=== PATIENT | male | born 1960 | race Caucasian/White ===

== ENCOUNTER → 2022-07-02 08:38 | Outpatient (BNVA) | payer MEDICARE, SELFPAY | PROVIDERS: Visit Provider Orthopaedic Surgery | DX: M48.062 Spinal stenosis, lumbar region with neurogenic claudication (principal); M51.36 Other intervertebral disc degeneration, lumbar region | CPT/HCPCS: 72110; 99204 ==

== ENCOUNTER 2024-03-02 18:33 | Emergency (ER) | payer MEDICARE, SELFPAY ==
[2024-03-02 18:38] VITALS: BP 129/83; PULSE 80; RESP 16; TEMP 36.6; O2SAT 97
--- NOTE | 2024-03-02 18:55 | CTR_ITS ---
PROCEDURE INFORMATION: Exam: CT Abdomen And Pelvis Without Contrast Exam date and time: 03/02/2024 7:04 PM Age: 63 years old Clinical indication: Abdominal pain; Flank; Patient HX: Pain under left rib cage; Additional info: Left lank pain radiating into abd, HX stones TECHNIQUE: Imaging protocol: Computed tomography of the abdomen and pelvis without contrast. Radiation optimization: All CT scans at this facility use at least one of these dose optimization techniques: automated exposure control; mA and/or kV adjustment per patient size (includes targeted exams where dose is matched to clinical indication); or iterative reconstruction. COMPARISON: CR XR lumbar spine min 4V 11207 07/02/2022 8:38 AM RADIATION DOSE METRICS: Total DLP (mGy-cm): 447 FINDINGS: Liver: Normal. No mass. Gallbladder and bile ducts: Normal. No calcified stones. No ductal dilation. Pancreas: Normal. No ductal dilation. Spleen: Normal. No splenomegaly. Adrenal glands: Normal. No mass. Kidneys and ureters: Bilateral simple appearing renal cysts are present which do not need further follow-up, as well as other subcentimeter hypodensities which are too small to adequately characterize. There is an obstructing 6 mm stone in the proximal left ureter with upstream hydroureter and mild hydronephrosis. Stomach and bowel: Unremarkable. No obstruction. No mucosal thickening. Appendix: No evidence of appendicitis. Intraperitoneal space: Unremarkable. No free air. No significant fluid collection. Vasculature: Unremarkable. No abdominal aortic aneurysm. Lymph nodes: Unremarkable. No enlarged lymph nodes. Urinary bladder: Unremarkable as visualized. Reproductive: Unremarkable as visualized. Bones/joints: Unremarkable. No acute fracture. Soft tissues: Unremarkable. CT/CT kidney stone [id number] IMPRESSION: There is an obstructing 6 mm stone in the proximal left ureter with upstream hydroureter and mild hydronephrosis. COMMENTS: Consistent with the [employer]'s Incidental Findings Committee white paper (J Am Diego Radiol 2018): Any incidental renal lesion less than 1 cm or classified as too small to characterize, or any incidental cystic renal lesion characterized as simple-appearing, is likely benign. No follow-up imaging is recommended for these lesions per consensus recommendations based on imaging criteria.
--- NOTE | 2024-03-02 18:57 | W.ED.MALEGU ---
HPI - Male Genitourinary General: Chief complaint: Urogenital-Male Stated complaint: back/abd under rib pain n/v Time Seen by Provider: 03/02/24 18:44 History of Present Illness: Patient presents to the ER with left severe flank pain that radiates to his abdomen. He has had this happen 3 to 4 days over the last month. He takes some Valium and usually goes away. Patient took some Valium today as well as some Flomax from a friend and it did not go away up until he was on his way here. Patient is pain-free at this time. Patient does have a history of kidney stones. Patient denies any fever chills nausea vomiting. Review of Systems General: Reports: 10 or more systems reviewed and unremarkable except in HPI and below PFSH ED PFSH: Social History Smoking and tobacco/nicotine status: never used tobacco/nicotine Physical Exam Const: COMMON NORMALS: no acute distress, average body habitus, patient oriented x3, no limitations, healthy appearing, alert and well nourished HENMT: COMMON NORMALS: normocephalic, atraumatic, hearing grossly normal bilaterally, external ears normal, Normal external nose present, moist oral mucous membranes and oropharynx normal HEAD & SCALP: normocephalic and atraumatic NOSE: Normal external nose present EXTERNAL EAR: Yes external ears normal Neck/C-Spine: COMMON NORMALS: no JVD Chest: COMMONS NORMALS: normal inspection of the chest and normal palpation of entire chest wall Resp: COMMON NORMALS: normal respiratory effort, No retractions, No use of accessory muscles and clear to auscultation bilaterally AUSCULTATION: clear to auscultation bilaterally Cardio: COMMON NORMALS: no JVD, regular rate, regular rhythm, S1 normal heart sound present, S2 normal heart sound present, No gallops present (Cardio), No clicks present (Cardio), No murmurs present (Cardio) and No rub (Cardio) RATE: regular rate RHYTHM: regular rhythm HEART SOUNDS: S1 normal heart sound present and S2 normal heart sound present GI: COMMON NORMALS: Normal to inspection, nondistended, normoactive bowel sounds present, Soft to palpation, non-tender, No hepatosplenomegaly present and no masses PALPATION: Yes Soft to palpation and Yes No hepatosplenomegaly present Neuro: COMMON NORMALS: patient oriented x3 SENSORIUM/ORIENTATION: Yes alert Course Vital Signs: Vital signs: Vital Signs Temperature 97.8 F 03/02/24 18:38 Pulse Rate 80 03/02/24 18:38 Respiratory Rate 16 03/02/24 18:38 Blood Pressure 129/83 03/02/24 18:38 Pulse Oximetry 97 03/02/24 18:38 MDM - Male Medical Decision Making Lab work was reviewed as well as abdomen pelvis CT which showed a 6 mm stone in proximal left ureter, patient will be given Toradol and Flomax and referred to urology. Differential Diagnosis Unlikely urinary tract infection, priapism, urethritis, epididymitis, genital herpes simplex, prostatitis, acute retention of urine or inguinal hernia Medical Records I reviewed the patient's medical records. Lab Data I reviewed the patient's lab results. 03/02/24 19:18 03/02/24 19:18 Radiology Impressions Abdomen/Pelvis CT 03/02/24 18:55 IMPRESSION: There is an obstructing 6 mm stone in the proximal left ureter with upstream hydroureter and mild hydronephrosis. COMMENTS: Consistent with the [employer]'s Incidental Findings Committee white paper (J Am Diego Radiol 2018): Any incidental renal lesion less than 1 cm or classified as too small to characterize, or any incidental cystic renal lesion characterized as simple-appearing, is likely benign. No follow-up imaging is recommended for these lesions per consensus recommendations based on imaging criteria. Laboratory Results WBC 9.82 10^3/uL (3.29-11.43) 03/02/24 19:18 RBC 4.98 10^6/uL (3.85-5.65) 03/02/24 19:18 Hgb 15.40 g/dL (11.27-16.99) 03/02/24 19:18 Hct 44.7 % (37-53) 03/02/24 19:18 MCV 89.8 fl (82-101) 03/02/24 19:18 MCH 30.9 pg (27-33) 03/02/24 19:18 MCHC 34.5 g/dL (30-55) 03/02/24 19:18 RDW 13.2 % (12.1-15.1) 03/02/24 19:18 Plt Count 206 10^3/cmm (157-399) 03/02/24 19:18 MPV 8.8 fL (7.4-10.4) 03/02/24 19:18 Neut % (Auto) 81.7 % 03/02/24 19:18 Lymph % (Auto) 8.5 % 03/02/24 19:18 [place] % (Auto) 6.5 % 03/02/24 19:18 Eos % (Auto) 2.3 % 03/02/24 19:18 Baso % (Auto) 0.6 % 03/02/24 19:18 Neut # (Auto) 8.02 10^3/uL (1.8-7.7) H 03/02/24 19:18 Lymph # (Auto) 0.8 10^3/uL (0.8-4.8) 03/02/24 19:18 [place] # (Auto) 0.6 10^3/uL (0.2-0.9) 03/02/24 19:18 Eos # (Auto) 0.2 10^3/uL (0.0-0.8) 03/02/24 19:18 Baso # (Auto) 0.1 10^3/uL (0.0-0.1) 03/02/24 19:18 Nucleated RBC % (auto) 0 % 03/02/24 19:18 Nucleated RBCs # 0.0 /100WBC 03/02/24 19:18 Sodium 144 mmol/L (136-145) 03/02/24 19:18 Potassium 3.8 mmol/L (3.5-5.1) 03/02/24 19:18 Chloride 106 mmol/L (98-107) 03/02/24 19:18 Carbon Dioxide 28 mmol/L (22-29) 03/02/24 19:18 Anion Gap 13.8 (5-19) 03/02/24 19:18 BUN 14 mg/dL (8-23) 03/02/24 19:18 Creatinine 1.1 mg/dL (0.7-1.2) 03/02/24 19:18 GFR Calculation 67.2 mL/min (90-130) L 03/02/24 19:18 Glucose 131 mg/dL (65-115) H 03/02/24 19:18 Calculated Osmolality 300 mOsm/kg (285-295) H 03/02/24 19:18 Calcium 8.9 mg/dL (8.5-10.5) 03/02/24 19:18 Total Bilirubin 0.4 mg/dL (0.15-1.2) 03/02/24 19:18 AST 14 U/L (0-40) 03/02/24 19:18 ALT 11 U/L (0-41) 03/02/24 19:18 Alkaline Phosphatase 74 U/L (40-130) 03/02/24 19:18 Total Protein 7.4 g/dL (6.6-8.7) 03/02/24 19:18 Albumin 4.4 g/dL (3.5-5.2) 03/02/24 19:18 Globulin 3.0 g/dL (1.3-4.6) 03/02/24 19:18 Urine Color Yellow (Yellow) 03/02/24 19:15 Urine Appearance Clear (CLEAR) 03/02/24 19:15 Urine pH 6 (5-7) 03/02/24 19:15 Ur Specific [place] 1.020 (1.005-1.030) 03/02/24 19:15 Urine Protein Neg (Negative) 03/02/24 19:15 Urine Glucose (UA) Norm (Normal) 03/02/24 19:15 Urine Ketones Negative (Negative) 03/02/24 19:15 Urine Blood 3+ (Negative) H 03/02/24 19:15 Urine Nitrate Negative (Negative) 03/02/24 19:15 Urine Bilirubin Neg (Negative) 03/02/24 19:15 Urine Urobilinogen Norm mg/dL (Negative) 03/02/24 19:15 Ur Leukocyte Esterase Negative (Negative) 03/02/24 19:15 Urine RBC 15-25 /hpf (0-2) H 03/02/24 19:15 Urine WBC 0-4 /hpf (0-5) H 03/02/24 19:15 Ur Squamous Epith Cells None /hpf (0-5) 03/02/24 19:15 Amorphous Sediment Not Reportable 03/02/24 19:15 Urine Bacteria None /hpf (NONE) 03/02/24 19:15 Urine Mucus 1+ /hpf 03/02/24 19:15 All radiology interpretation(s) finalized by discharge Discharge Plan Discharge Patient Disposition: Home Clinical Impression: Kidney stone on left side Condition: Stable Prescriptions: New ketorolac 10 mg tablet 10 mg PO TID PRN (Reason: pain) Qty: 14 0RF Rx Instructions: maximum total duration of 5 days from all oral, intranasal, or parenteral formulations tamsulosin [Flomax] 0.4 mg capsule 0.4 mg PO DAILY Qty: 14 0RF No Action lidocaine 5 % adhesive patch,medicated 1 patch topical DAILY Rx Instructions: leave on most painful area for up to 12 hrs Discharge Orders: Discharge ED (Routine); Ordered 03/02/24 Ordered By: Hernan Dowell Referrals: Rowena Sierra FNP [Primary Care Provider] - 1 week Patient Instructions: Kidney Stones, How to Strain Your Urine (ED) Activity Restrictions/Additional Instructions: Please take all your medicine as directed. You have been referred to case management for referral to urology for your kidney stone. They should call you next couple business days to arrange this appointment. If your pain becomes unbearable or you develop any fever or chills please feel free to return back to the ER for further evaluation. Coding Level of Care Code ED Integration Engineer for Bubba Torres
[2024-03-02 19:26] LABS: Basophils # 0.1 10^3/uL (0.0-0.1); Basophils % 0.6 %; Eosinophils # 0.2 10^3/uL (0.0-0.8); Eosinophils % 2.3 %; Hematocrit 44.7 % (37-53); Lymphocytes # 0.8 10^3/uL (0.8-4.8); Lymphocytes % 8.5 %; Mean Corpuscular HGB Conc 34.5 g/dL (30-55); Mean Corpuscular Hemoglobin 30.9 pg (27-33); Mean Corpuscular Volume 89.8 fl (82-101); Mean Platelet Volume 8.8 fL (7.4-10.4); Monocytes # 0.6 10^3/uL (0.2-0.9); Monocytes % 6.5 %; Neutrophils # 8.02 10^3/uL (1.8-7.7); Neutrophils % 81.7 %; Nucleated Red Blood Cells % 0 %; Platelet Count 206 10^3/cmm (157-399); Red Blood Count 4.98 10^6/uL (3.85-5.65); Red Cell Distribution Width 13.2 % (12.1-15.1); White Blood Count 9.82 10^3/uL (3.29-11.43)
[2024-03-02 19:40] LABS: Add Urine Microscopic? YES; Bilirubin Urine Neg (Negative); Blood Urine 3+ (Negative); Glucose Urine UA Norm (Normal); Ketones Urine Negative (Negative); Leukocyte Esterase Urine Negative (Negative); Nitrate Urine Negative (Negative); Protein Urine Neg (Negative); Urine Appearance Clear (CLEAR); Urine Color Yellow (Yellow); Urobilinogen Urine Norm (Negative); pH Urine 6 (5-7)
[2024-03-02 19:43] LABS: Mucus Urine 1+ /hpf; RBC Urine 15-25 /hpf (0-2); WBC Urine 0-4 /hpf (0-5)
[2024-03-02 19:44] LABS: Add Urine Culture? Yes
[2024-03-02 19:53] LABS: Alanine Aminotransferase 11 U/L (0-41); Albumin Level 4.4 g/dL (3.5-5.2); Alkaline Phosphatase 74 U/L (40-130); Anion Gap 13.8 (5-19); Aspartate Amino Transferase 14 U/L (0-40); Blood Urea Nitrogen 14 mg/dL (8-23); Calcium 8.9 mg/dL (8.5-10.5); Carbon Dioxide 28 mmol/L (22-29); Chloride 106 mmol/L (98-107); Creatinine Clr Calc Pharmacy 68.1087; Glomerular Filtration Rate 67.2 mL/min (90-130); Glucose 131 mg/dL (65-115); Osmolality Calculated 300 mOsm/kg (285-295); Potassium 3.8 mmol/L (3.5-5.1); Sodium 144 mmol/L (136-145); Total Bilirubin 0.4 mg/dL (0.15-1.2); Total Protein 7.4 g/dL (6.6-8.7)
[2024-03-02] MEDS: ketorolac 10 mg Tablet 20 MG PO (21:10)
[2024-03-02 21:20] VITALS: BP 129/83; PULSE 80; RESP 16; TEMP 36.6; O2SAT 97
== END 2024-03-02 21:21 | disposition home or self-care (01) ==
PROVIDERS: Emergency Provider Emergency Medicine; PCP Nurse Practitioner Family
DX: N13.2 Hydronephrosis with renal and ureteral calculous obstruction (principal)
CPT/HCPCS: 74176; 80053; 81001; 85025; 87086; 99284